=== PATIENT | female | born 2000 | race Two or more races ===

== ENCOUNTER 2021-05-03 17:13 | Emergency (ER) | payer SELFPAY ==
[~2021-05-03] VITALS: Ht 165.1 cm; Wt 75.3 kg
[2021-05-03 19:12] VITALS: BP 126/83
[2021-05-03] MEDS ORDERED: DEXAMETHASONE 4 MG TABLET PO ONE (20:45)
[2021-05-03] MEDS ORDERED: BENZ1LOZ48 PO (20:52)
--- NOTE | 2021-05-03 20:55 | PHYS DOC ---
Past Medical History Past Surgical History: No Surgical History General Adult EDM: Chief Complaint: EARACHE/EAR PAIN HPI: HPI: 21 yo F who denies any past medical history presents the ED with her biological mother, (patient consents to his/her/their knowledge and involvement in pts' medical care), with complaints of right earache, right neck pain and sore throat for the past 1-2 days, is requesting pain medication. Is tolerating oral intake. Has not been vaccinated for Covid. Denies associated fevers, lack of taste or smell, nausea, vomiting, headache, neck stiffness, cough or shortness of breath. Review of Systems: Review of Systems: Constitutional: Denies fever or chills. [] Eyes: Denies change in visual acuity. [] HENT: Denies nasal congestion or sore throat. [] Respiratory: Denies cough or shortness of breath. [] Cardiovascular: Denies chest pain or edema. [] GI: Denies abdominal pain, nausea, vomiting, bloody stools or diarrhea. [] : Denies dysuria. [] Musculoskeletal: Denies back pain or joint pain. [] Integument: Denies rash. [] Neurologic: Denies headache, focal weakness or sensory changes. [] Endocrine: Denies polyuria or polydipsia. [] Lymphatic: Denies swollen glands. [] Psychiatric: Denies depression or anxiety. [] Heart Score: C/O Chest Pain: No Risk Factors: Risk Factors: DM, Current or recent (<one month) smoker, HTN, HLP, family history of CAD, obesity. Risk Scores: Score 0 - 3: 2.5% MACE over next 6 weeks - Discharge Home Score 4 - 6: 20.3% MACE over next 6 weeks - Admit for Clinical Observation Score 7 - 10: 72.7% MACE over next 6 weeks - Early Invasive Strategies Current Medications: Current Medications Medications (Trade) Dose Ordered Sig/Maria T Start Time Stop Time Status Last Admin Dose Admin Dexamethasone (Decadron) 10 mg 1X ONCE 05/03/21 20:45 05/03/21 20:46 DC 05/03/21 20:40 10 MG Allergies: Allergies: Allergies Coded Allergies Type Severity Reaction Last Updated Verified No Known Drug Allergies 05/03/21 No Physical Exam: PE: Constitutional: Well developed, well nourished, no acute distress, non-toxic appearance, afebrile HENT: Normocephalic, atraumatic, normal tympanic membranes bilaterally, mild pharyngeal erythema with no exudates, no palatal petechiae Eyes: EOMI, conjunctiva normal, no discharge. Neck: Normal range of motion, supple, no nuchal rigidity or meningismus Cardiovascular: S1/2 present, regular rhythm Lungs & Thorax: Speaking in full sentences, bilateral equal chest rise, no tachypnea or increased work of breathing Abdomen: soft, no tenderness, Skin: Warm, dry, no erythema, no rash. [] Extremities: No tenderness, no cyanosis, Neurologic: Alert and oriented X 3, normal motor function, normal sensory function, no focal deficits noted. [] Psychologic: Affect normal, judgement normal, mood normal. [] Current Patient Data: Labs: Laboratory Tests Test 05/03/21 19:55 SARS-CoV-2 Antigen (Rapid) Negative (NEGATIVE) Vital Signs: Vital Signs Date Time Temp Pulse Resp B/P (MAP) Pulse Ox O2 Delivery O2 Flow Rate FiO2 05/03/21 19:12 98.8 63 16 126/83 99 Room Air 98.8 EKG: EKG: [] Radiology/Procedures: Radiology/Procedures: [] Course & Med Decision Making: Course & Med Decision Making Pertinent Labs and Imaging studies reviewed. (See chart for details) COVID-19 CRITERIA: The patient was evaluated during the global COVID-19 pandemic, and that diagnosis was suspected/considered upon their initial presentation. Their evaluation, treatment and testing was consistent with current guidelines for patients who present with complaints or symptoms that may be related to COVID-19. Concern for URI, Covid test pending. Rapid strep negative. Tympanic membrane with no erythema or middle ear effusion, no external canal erythema. Will discharge home with strict ED return precautions were given for neurologic symptoms, chest pain, dyspnea or increased work of breathing. Encouraged urgent outpatient follow-up with PMD. Life-threatening processes were considered but are low suspicion at this time, given history, physical exam and ED workup. Pt was educated on all prescription medications and adverse effects. All patient's questions were answered and pt was stable at time of discharge. Life/limb-threatening differential includes but is not limited to, airway emergency or respiratory distress/ARDS or fatigue or head or neck swelling, toxidrome, sepsis/shock, angioedema, anaphylaxis, congestive heart failure, myocarditis, acute myocardial infarction, dysrhythmias, cardiomyopathy, venous thromboembolism, pulmonary emboli, Menezes syndrome, acute necrotizing hemorrhagic encephalopathy ,cerebral venous thrombosis, meningitis, encephalitis or CVA. I have spoken with the patient and/or caregivers. I explained the patient's condition, diagnoses and treatment plan based on the information available to me at this time. I have answered the patient and/or caregiver's questions and addressed any concerns. The patient and/or caregivers have a good understanding of patient's diagnosis, condition and treatment plan as can be expected at this point. Vital signs have been stable. Patient's condition is stable and appropriate for discharge from the emergency department. Patient will pursue further outpatient evaluation with primary care physician or other designated or consulting physician as outlined in the discharge instructions. The patient and/or caregivers are agreeable to this plan of care and follow-up instructions have been explained in detail. The patient and/or caregivers have received these instructions in written form and have expressed an understanding of the discharge instructions. The patient and/or caregivers are aware that any significant change of condition or worsening of symptoms should prompt immediate return to this or the closest emergency department or call to 911. Snupps Disclaimer: Snupps Disclaimer: This electronic medical record was generated, in whole or in part, using a voice recognition dictation system. Departure Departure Impression: Primary Impression: Person under investigation for COVID-19 Additional Impressions: Acute pharyngitis Otalgia, right ear Disposition: HOME / SELF CARE / HOMELESS Condition: STABLE Referrals: NO PCP (PCP) Follow-up with your primary care physician in 24 to 48 hours OR FOLLOW UP WITH FAMILY MEDICINE: [address], [address] [place] [address] Patient Instructions: Otalgia, Viral Pharyngitis Additional Instructions: Return to ED immediately if your oxygen level drops below 90% (purchase a pulse oximetry at a medical supply store), difficulties breathing including rapid breathing or increased work of breathing (skin sucking under ribs), chest pain or stroke-like symptoms (facial droop, speech changes, arm/leg weakness). EMERGENCY DEPARTMENT GENERAL DISCHARGE INSTRUCTIONS Thank you for coming to [facility] Emergency Department (ED) today and trusting us with you care. We trust that you had a positive experience in our Emergency Department. If you wish to speak to the department management, you may call the Director at [phone]. YOUR FOLLOW UP INSTRUCTIONS ARE FOLLOWS: 1. Do you have a private Doctor? If you do not have a private doctor, please ask for a resource list of physicians or clinics that may be able to assist you with follow up care. 2. The Emergency Physicain has interpreted your x-rays. The X-Ray specialist will also review them. If there is a change in the findings, you will be notified in 48 hours when at all possible. 3. A lab test or culture has been done, your results will be reviewed and you will be notified if you need a change in treatment. ADDITIONAL INSTRUCTIONS AND INFORMATION: 1. Your care today has been supervised by a physician who is specially trained in emergency care. Many problems require more than one evaluation for a complete diagnosis and treatment. We recommend that you schedule your follow up appointment as recommended to ensure complete treatment of you illness or injury. If you are unable to obtain follow up care and continue to have a problem, or if your condition worsens, we recommend that you return to the ED. 2. We are not able to safely determine your condition over the phone nor are we able to give sound medical advice over the phone. For these safety reasons, if you call for medical advice we will ask you to come to the ED for further evaluation. 3. If you have any questions regarding these discharge instructions please call the ED at [phone]. SAFETY INFORMATION: In the interest of safety, wellness, and injury prevention; we encourage you to wear your sealbelt, if you smoke; quite smoking, and we encourage family to use a protective helmet for bicycling and other sporting events that present an increased risk for head injury. IF YOUR SYMPTOMS WORSEN OR NEW SYMPTOMS DEVELOP, OR YOU HAVE CONCERNS ABOUT YOUR CONDITION; OR IF YOUR CONDITION WORSENS WHILE YOU ARE WAITING FOR YOUR FOLLOW UP APPOINTMENT; EITHER CONTACT YOUR PRIMARY CARE DOCTOR, THE PHYSICIAN WHOSE NAME AND NUMBER YOU WERE Criselda BALDERRAMA, OR RETURN TO THE ED IMMEDIATELY. Scripts Benzocaine/Menthol (CEPACOL SORE THROAT LOZENGE) 1 Each Lozenge 1 TAB PO Q4HRS for sore throat for 3 Days, #18 TAB 0 Refills Prov: LIZA CHAMBERS DO 05/03/21 LIZA CHAMBERS DO May 03, 2021 20:55
--- NOTE | 2021-05-04 16:52 | NUR ---
IP: Attempted to contact pt concerning covid results. No answer, left a voicemail to return the call.
== END 2021-05-03 21:15 | disposition home or self-care (01) ==
LOC: ER 17:13
DX: J02.9 Acute pharyngitis, unspecified (principal); Z20.822 Contact with and (suspected) exposure to COVID-19; H92.01 Otalgia, right ear; M54.2 Cervicalgia
CPT/HCPCS: 87070; 87426; 87880; 99283; U0003; U0005